=== PATIENT | male | born 1990 | race Caucasian/White ===

== ENCOUNTER 2021-01-15 10:34 | Emergency (ER) | payer BC ==
[~2021-01-15] VITALS: Ht 182.9 cm; Wt 90.4 kg
--- NOTE | 2021-01-15 11:25 | NUR ---
PT RESTING ON ED GURNEY. PT C/O STOMACH DISCOMFORT, NO N/V OR DIARRHEA, LEFT FLANK PAIN, AND THE NEED TO TAKE DEEP BREATHES EVERY COUPLE MINUTES.
[2021-01-15] MEDS ORDERED: LORazepam 1MG TABLET PO ONE (11:30)
[2021-01-15] MEDS ORDERED: KETOROLAC 30 MG/1 ML IM ONE (11:30)
[2021-01-15] MEDS ORDERED: KETOROLAC 30 MG/1 ML ONE (11:33)
[2021-01-15] MEDS ORDERED: LORazepam 1MG TABLET ONE (11:34)
[2021-01-15 11:41] LABS: BASOPHILS % (AUTO) 0 % (0-1); EOSINOPHILS % (AUTO) 4 % (1-7); LYMPHOCYTES % (AUTO) 21 % (22-44); MEAN CORPUSCULAR HEMOGLOBIN 30.7 pg (27.5-34.5); MEAN CORPUSCULAR HGB CONC 35.2 g/dL (33.2-36.2); MEAN PLATELET VOLUME 7.4 fL (7.4-10.4); MONOCYTES % (AUTO) 6 % (2-9); NEUTROPHILS % (AUTO) 69 % (42-75); PLATELET COUNT 295 x10^3/uL (130-400); RED BLOOD COUNT 4.73 x10^6/uL (4.38-5.82); RED CELL DISTRIBUTION WIDTH 12.6 % (9.4-14.8)
[2021-01-15 11:59] LABS: CHLORIDE 105 mmol/L (98-107)
[2021-01-15 12:27] LABS: ALANINE AMINOTRANSFERASE 25 U/L (12-78); ALBUMIN 3.9 g/dL (3.4-5.0); ALKALINE PHOSPHATASE 70 U/L (45-117); ANION GAP 5 mmol/L (5-15); BILIRUBIN,TOTAL 0.6 mg/dL (0.2-1.0); CALCIUM 8.5 mg/dL (8.5-10.1); CREATININE 1.05 mg/dL (0.7-1.3); TOTAL PROTEIN 7.6 g/dL (6.4-8.2); TROPONIN I < 0.015 ng/mL (0.000-0.045)
[2021-01-15 13:06] VITALS: BP 90/56
--- NOTE | 2021-01-15 13:06 | NUR ---
REPORT FROM SHAHAB ROSA FOR TRANSFER OF PATIENT CARE.
--- NOTE | 2021-01-15 13:31 | NUR ---
Patient given discharge instructions and prescriptions and they have confirmed that they understand the instructions. Patient ambulatory with steady gait. NAD, all questions answered appropriately, denies additional needs at this time. No personal belongings left in room after discharge.
== END 2021-01-15 13:32 | disposition home or self-care (01) ==
LOC: ED 13:20
DX: M54.6 Pain in thoracic spine (principal); R06.00 Dyspnea, unspecified; M54.5 Low back pain; F17.210 Nicotine dependence, cigarettes, uncomplicated
CPT/HCPCS: 36415; 71045; 80053; 84484; 85025; 85379; 93005; 96372; 99285; 99406; J1885